=== PATIENT | female | born 1990 | race Caucasian/White ===

== ENCOUNTER 2017-11-18 08:38 | Emergency (ER) | payer MEDICAID, OTHER ==
[2017-11-18] MEDS: TRIMETHOPRIM/SULFAMETHOX (DS) TAB PO (09:15)
[2017-11-18] MEDS: LIDOCAINE 1%/EPI (MDV) 50 ML INJ INJ (09:15)
[2017-11-18] MEDS: LIDOCAINE 1%/EPI (1:100,000) (MDV) 20 ML INJ (09:16)
[2017-11-18] MEDS: CEPHALEXIN 500 MG CAP PO (09:16)
== END 2017-11-18 10:25 | disposition home or self-care (01) ==
LOC: FTE 08:38
DX: N76.4 Abscess of vulva (principal)
CPT/HCPCS: 56405; 99284-25

== ENCOUNTER 2017-11-20 08:44 | Emergency (ER) | payer MEDICAID | END 2017-11-20 10:59 | disposition home or self-care (01) | LOC: FTE 08:44 | DX: Z48.01 Encounter for change or removal of surgical wound dressing (principal); N34.0 Urethral abscess | CPT/HCPCS: 99281; Z7502 ==